=== PATIENT | female | born 1995 | race Caucasian/White ===

== ENCOUNTER 2021-01-03 09:10 | Emergency (ER) | payer OTHER ==
[~2021-01-03] VITALS: Ht 167.6 cm; Wt 67.1 kg
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
--- NOTE | 2021-01-03 09:22 | NUR ---
DR ACKERMAN AT THE BEDSIDE
[2021-01-03] MEDS ORDERED: TDAP [DIPH/PERTUSSIS/TET] 0.5 ML VIAL IM ONE ×2 (10:07→10:30)
--- NOTE | 2021-01-03 10:21 | NUR ---
LAC REPAIR DONE. PT PROVIDED W/ WOUND CARE. PT DISCHARGE HOME IN STABLE CONDITION.
[2021-01-03 10:23] VITALS: BP 125/77
[2021-01-03] MEDS ORDERED: BACITRACIN ZINC OINT PACKET 1 EA PACKET TP ONE (10:30)
[2021-01-03] MEDS ORDERED: LIDOCAINE 1% INJ 50 ML MDV IJ ONE (10:30)
== END 2021-01-03 10:23 | disposition home or self-care (01) ==
LOC: ER 09:17
DX: S81.812A Laceration without foreign body, left lower leg, initial encounter (principal); R45.86 Emotional lability; X78.8XXA Intentional self-harm by other sharp object, initial encounter; Y93.89 Activity, other specified; Y92.89 Other specified places as the place of occurrence of the external cause; Y99.8 Other external cause status
CPT/HCPCS: 90715